=== PATIENT | female | born 1995 | race Two or more races ===

== ENCOUNTER 2016-07-04 19:02 | Emergency (ER) | payer BC ==
--- NOTE | ~2016-07-04 | ER ---
[facility] AGE: 20 Y [address] ROOM: [place] [address] LOCATION: [facility] ADMIT DATE: 07/04/2016 ER/Outpatient Report DISCHARGE DATE: 07/04/2016 FAMILY PHYSICIAN: PHYSICIAN, NO ATTENDING PHYSICIAN: Maxime Alonso Time of Arrival: 1904 hours. Time of Evaluation: 1904 hours. CHIEF COMPLAINT: Head injury. HISTORY OF PRESENT ILLNESS: The patient states last night about 10 o'clock, she was playing soccer, fell, ended up hitting the back of her head against the ground. She has had some blurred vision and neck discomfort ever since. Did not have any loss of consciousness. She has not been nauseated, has not vomited. Does have a sore throat she states, but no trouble swallowing, no trouble breathing. ALLERGIES: NO KNOWN ALLERGIES. CURRENT MEDICATIONS: No current medications. PAST MEDICAL HISTORY: Benign. PAST SURGERIES: Negative. SOCIAL HISTORY: She denies the use of tobacco, drugs, or alcohol. REVIEW OF SYSTEMS: All negative other than those mentioned in the HPI. PHYSICAL EXAMINATION: VITAL SIGNS: Weight 86 kg, blood pressure is 141/86, pulse is 76, respirations are 16, temperature of 98.7, O2 saturation was 98% on room air, [place] Coma Scale is 15. GENERAL: She is awake, alert, and oriented x4. SKIN: [place], warm, and dry. RESPIRATIONS: Even and nonlabored. HEENT: Pupils are equal and reactive to light. Extraocular movement is PATIENT'S NAME: [facility] AGE: 20 Y [address] ROOM: [place] [address] LOCATION: [facility] ADMIT DATE: 07/04/2016 ER/Outpatient Report DISCHARGE DATE: 07/04/2016 FAMILY PHYSICIAN: PHYSICIAN, NO ATTENDING PHYSICIAN: Maxime Alonso intact. Negative nystagmus. TMs are dull. Nasal is clear. Oropharynx is clear. NECK: Tender to palpate along the paraspinal area. No lymphadenopathy is noted. LUNGS: Lung sounds are clear throughout. HEART: Regular rate and rhythm. EXTREMITIES: The patient moves all extremities strongly and equally. LABORATORY DATA: CT of the head and neck, C-spine were completed. Radiologist reports, they are negative. IMPRESSION: Minor head injury. PLAN: Home, rest, fluids. Tylenol or ibuprofen as needed. See primary provider in a couple of days. Return to the ER sooner if symptoms worsen. She verbalized understanding. JAMISON MCKEON APRN FOR [employer] [facility]/rajinder /[id number] d: 07/05/16 0118 t: 07/10/16 1331, OUTPATIENT REPORT
== END 2016-07-04 20:16 | disposition disaster alternative care site (69) ==
LOC: GACC 19:02
DX: S09.90XA Unspecified injury of head, initial encounter (principal); W01.198A Fall on same level from slipping, tripping and stumbling with subsequent striking against other object, initial encounter; Y93.66 Activity, soccer